=== PATIENT | male | born 1995 | race Caucasian/White ===

== ENCOUNTER 2023-01-25 01:03 | Emergency (ER) | payer MEDICAID, OTHER ==
[~2023-01-25] VITALS: Ht 188 cm; Wt 87.0 kg
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
--- NOTE | 2023-01-25 01:38 | NUR ---
called belinda back, log # [id number]
--- NOTE | 2023-01-25 01:49 | NUR ---
pt neuro/CSM intact. pt able to move all extremities, reports no tingling/numbness. normal gait. aox4, gcs 15.
[2023-01-25 02:16] LABS: BASOPHILS % (AUTO) 0.2 % (0-1); EOSINOPHILS % (AUTO) 0.2 % (0-6); HEMATOCRIT 42.2 % (42.0-52.0); LYMPHOCYTES # (AUTO) 0.6 X10'3 (1.1-4.8); LYMPHOCYTES % (AUTO) 4.6 % (21-51); MEAN CORPUSCULAR HGB CONC 33.2 g/dL (33.0-36.5); MEAN CORPUSCULAR VOLUME 87.3 FL (78-98); MONOCYTES # (AUTO) 1.2 X10'3 (0-0.9); MONOCYTES % (AUTO) 8.8 % (2-12); NEUTROPHILS # (AUTO) 11.7 X10'3 (1.8-7.7); NEUTROPHILS % (AUTO) 86.2 % (42-75); PLATELET COUNT 159 X10'3 (140-440); RED BLOOD COUNT 4.84 X10'6 (4.70-6.10); RED CELL DISTRIBUTION WIDTH 13.6 % (11.5-14.5); WHITE BLOOD COUNT 13.6 X10'3 (4.5-11.0)
[2023-01-25 02:24] LABS: ALANINE AMINOTRANSFERASE 33 U/L (12-78); ALBUMIN/GLOBULIN RATIO 1.3 (1.1-1.5); ALKALINE PHOSPHATASE 73 IU/L (46-116); ANION GAP 7 (8-16); ASPARTATE AMINO TRANSFERASE 28 U/L (10-37); BILIRUBIN,TOTAL 0.3 MG/DL (0.1-1.0); BLOOD UREA NITROGEN 16 MG/DL (7-18); BUN/CREATININE RATIO 13.2 (10.0-20.0); CALCIUM 9.1 MG/DL (8.5-10.1); CHLORIDE 104 MMOL/L (99-107); CREATININE 1.21 MG/DL (0.60-1.10); GLUCOSE 108 MG/DL (70-104); POTASSIUM 3.7 MMOL/L (3.5-5.1); SODIUM 138 MMOL/L (135-145); TOTAL CARBON DIOXIDE 26.6 MMOL/L (24-32); TOTAL PROTEIN 7.1 G/DL (6.4-8.2); eCRCL 108 ML/MIN; eGFR 72 ML/MIN
[2023-01-25] MEDS ORDERED: clindamycin 150mg capsule PO ONE (02:40)
[2023-01-25] MEDS ORDERED: normal saline 1000ml 1,000 ML IV ONE (03:05)
[2023-01-25] MEDS ORDERED: HYDROcodone/acetaminophen 5mg/325mg tablet PO ONE (03:10)
--- NOTE | 2023-01-25 03:17 | NUR ---
[employer] at bedside
--- NOTE | 2023-01-25 03:38 | NUR ---
MINESH LOG# [id number] from officer
[2023-01-25] MEDS ORDERED: HYDR-3965 PO (04:41)
[2023-01-25] MEDS ORDERED: CLIN300C3 PO (04:41)
[2023-01-25 05:02] VITALS: BP 123/82; PULSE 77; RESP 14; TEMP 98.2; O2SAT 99
== END 2023-01-25 05:05 | disposition home or self-care (01) ==
LOC: ER 01:03
DX: S02.2XXA Fracture of nasal bones, initial encounter for closed fracture (principal); E86.0 Dehydration; Y08.89XA Assault by other specified means, initial encounter; Y93.89 Activity, other specified; Y92.89 Other specified places as the place of occurrence of the external cause; Y99.8 Other external cause status
CPT/HCPCS: 36415; 70450; 70486; 71045; 72125; 80053; 84484; 85025; 93005; 96360; 99285; J7030